=== PATIENT | male | born 1995 | race Caucasian/White ===

== ENCOUNTER → 2023-10-14 16:16 | Outpatient (BNVA) | payer MEDICAID, SELFPAY | PROVIDERS: Visit Provider Nurse Practitioner Family | DX: M54.50 Low back pain, unspecified (principal); M54.9 Dorsalgia, unspecified; R80.9 Proteinuria, unspecified; R31.9 Hematuria, unspecified | CPT/HCPCS: 80053; 83036; 85025 ==